=== PATIENT | male | born 1985 | race Caucasian/White ===

== ENCOUNTER 2021-08-22 20:41 | Emergency (ER) | payer OTHER ==
[~2021-08-22] VITALS: Ht 170.2 cm; Wt 81.6 kg
--- NOTE | 2021-08-22 20:50 | NUR ---
BIBS C/OL SIDED CP RADIATING TO RIGHT SHOULDER AND ARM, W/ SOB FOR 1 WEEK DESCRIBED PRESSURE . NO ALLEVIATING OR EXACERBATING FACTORS. PT AWAKE AND ALERT X4 BREATHING EVEN AND UNLABORED. CHANGED INTO GOWN AND PLACED ON MONITOR AND V/S WNL.
--- NOTE | 2021-08-22 21:07 | NUR ---
18G IV LINE ESTABLISHED AT LOCATED WITHIN [facility]. BLOOD DRAWN AND SENT TO LAB.
[2021-08-22 21:18] LABS: BASOPHILS % (AUTO) 0.4 % (0.0-2.0); EOSINOPHILS % (AUTO) 5.8 % (0.0-6.0); HEMATOCRIT 45 % (39-51); HEMOGLOBIN 15.7 g/dL (13.5-17.5); LYMPHOCYTES # (AUTO) 2.4 K/uL (0.8-4.8); LYMPHOCYTES % (AUTO) 31.4 % (20.0-44.0); MEAN CORPUSCULAR HGB CONC 35 g/dl (31.0-36.0); MEAN CORPUSCULAR VOLUME 93 fL (80-96); MONOCYTES # (AUTO) 0.6 K/uL (0.1-1.30); MONOCYTES % (AUTO) 7.5 % (2.0-12.0); NEUTROPHILS # (AUTO) 4.3 K/uL (1.8-8.9); NEUTROPHILS % (AUTO) 54.9 % (43.0-81.0); PLATELET COUNT (AUTO) 217 K/uL (150-450); RED BLOOD CELL COUNT(AUTO) 4.89 MIL/uL (4.5-6.0); WHITE BLOOD COUNT (AUTO) 7.7 K/uL (4.3-11.0)
[2021-08-22 21:32] LABS: CALCIUM, SERUM 9.3 mg/dL (8.5-10.1); CARBON DIOXIDE 30 mmol/L (21-32); CHLORIDE 103 mmol/L (98-107); CREATININE 0.9 mg/dL (0.6-1.3); GLUCOSE 92 mg/dL (74-106); POTASSIUM 3.8 mmol/L (3.5-5.1); SODIUM SERUM 140 mmol/L (136-145); UREA NITROGEN, BLOOD 21 mg/dL (7-18)
[2021-08-22 21:39] LABS: ALANINE AMINOTRANSFERASE 126 U/L (12-78); ALKALINE PHOSPHATASE 61 U/L (46-116); ASPARTATE AMINOTRANSFERASE 47 U/L (15-37); BILIRUBIN,DIRECT 0.1 mg/dL (0.0-0.2); BILIRUBIN,TOTAL 0.3 mg/dL (0.2-1.0); TOTAL PROTEIN, SERUM 7.9 g/dL (6.4-8.2)
[2021-08-22] MEDS ORDERED: KETOROLAC TROMETHAMINE INJ 30 MG/ML VIAL ONE ×2 (21:49→21:57)
[2021-08-22] MEDS ORDERED: KETOROLAC TROMETHAMINE INJ 30 MG/ML VIAL IV ONE (22:00)
[2021-08-22] MEDS ORDERED: NAPR-1009 PO (22:02)
[2021-08-22] MEDS ORDERED: HYDR-3976 PO (22:02)
--- NOTE | 2021-08-22 22:22 | NUR ---
Patient discharged to home in stable condition. Written and verbal after care instructions given. Patient verbalizes understanding of instruction.
[2021-08-22 22:52] VITALS: BP 123/68
== END 2021-08-22 22:28 | disposition home or self-care (01) ==
LOC: ER 20:41
DX: S46.911A Strain of unspecified muscle, fascia and tendon at shoulder and upper arm level, right arm, initial encounter (principal); S56.911A Strain of unspecified muscles, fascia and tendons at forearm level, right arm, initial encounter; R07.89 Other chest pain; X58.XXXA Exposure to other specified factors, initial encounter; Y93.89 Activity, other specified; Y92.89 Other specified places as the place of occurrence of the external cause; Y99.8 Other external cause status
CPT/HCPCS: 36415; 71045; 80048; 80076; 84484; 85025; 93005; 96374; 99285; J1885

== ENCOUNTER 2022-03-08 11:42 | Inpatient (IN) | payer OTHER ==
[~2022-03-08] VITALS: Ht 170.2 cm; Wt 81.6 kg
[~2022-03-08 11:42] MED LIST: HYDR-3976 PO; NAPR-1009 PO
[2022-03-08] MEDS ORDERED: HYDROCODONE/APAP 10/325MG TABLET PO ONE (12:00)
[2022-03-08] MEDS ORDERED: HYDROCODONE/APAP 10/325MG TABLET ONE (12:16)
[2022-03-08] MEDS ORDERED: MORPHINE SULFATE INJ 2 MG/ML DISP.SYRIN IV ONE (13:00)
--- NOTE | 2022-03-08 13:00 | NUR ---
20 g SL inserted in left forearm
[2022-03-08] MEDS ORDERED: MORPHINE SULFATE INJ 4 MG/ML DISP.SYRIN ONE (13:10)
[2022-03-08 13:11] LABS: BASOPHILS % (AUTO) 0.2 % (0.0-2.0); EOSINOPHILS % (AUTO) 1.9 % (0.0-6.0); HEMATOCRIT 45 % (39-51); HEMOGLOBIN 15.3 g/dL (13.5-17.5); LYMPHOCYTES # (AUTO) 1.2 K/uL (0.8-4.8); LYMPHOCYTES % (AUTO) 10.5 % (20.0-44.0); MEAN CORPUSCULAR HGB CONC 34 g/dl (31.0-36.0); MEAN CORPUSCULAR VOLUME 94 fL (80-96); MONOCYTES # (AUTO) 0.6 K/uL (0.1-1.30); MONOCYTES % (AUTO) 5.3 % (2.0-12.0); NEUTROPHILS # (AUTO) 9.3 K/uL (1.8-8.9); NEUTROPHILS % (AUTO) 82.1 % (43.0-81.0); PLATELET COUNT (AUTO) 240 K/uL (150-450); RED BLOOD CELL COUNT(AUTO) 4.85 MIL/uL (4.5-6.0); WHITE BLOOD COUNT (AUTO) 11.3 K/uL (4.3-11.0)
[2022-03-08] MEDS ORDERED: LEVO50TA PO (13:22)
[2022-03-08] MEDS ORDERED: PANT40TA49 PO (13:22)
[2022-03-08 13:23] LABS: CALCIUM, SERUM 8.8 mg/dL (8.5-10.1); CREATININE 0.9 mg/dL (0.6-1.3); POTASSIUM 3.5 mmol/L (3.5-5.1)
--- NOTE | 2022-03-08 13:59 | NUR ---
COVID and MRSA swabs obtained and placed in drop-off box
[2022-03-08] MEDS ORDERED: KETOROLAC TROMETHAMINE INJ 30 MG/ML VIAL IV ONE (15:00)
[2022-03-08] MEDS ORDERED: ONDANSETRON HCL/PF 4 MG/2 ML VIAL IVP PRN (17:00)
[2022-03-08] MEDS ORDERED: ACETAMINOPHEN 325 MG TABLET PO PRN (17:00)
[2022-03-08] MEDS: IV NS 0.9% 1,000 ML IV PRN ×2 (17:13→22:41)
[2022-03-08] MEDS: ENOXAPARIN SODIUM 40 MG/0.4 ML DISP.SYRIN SQ SCH (17:16)
[2022-03-08] MEDS: MORPHINE SULFATE INJ 2 MG/ML DISP.SYRIN IV PRN ×2 (18:03→22:14)
--- NOTE | 2022-03-08 20:50 | NUR ---
report given to maryanne on third floor
[2022-03-08 21:08] VITALS: BP 128/77
--- NOTE | 2022-03-08 21:08 | NUR ---
RN RECEIVING PATIENT FROM ER NOTE PATIENT [place] [facility] [place] WAS TRANSFERRED FROM RE[facility] TO BED BY STAFF. PATIENT STABLE. NO S/S OF DISTRESS, BREATHING WITHOUT DIFFICULTY ON ROOM AIR. LAC #18 INTACT AND PATENT. SAFETY MEASURES IN PLACE: BED LOCKED AND AT LOWEST POSITION, RAILS UP X2, CALL FERNÁNDEZ WITHIN REACH. PATIENT WAS ORIENTED TO THE UNIT. PATIENT WAS GIVEN CALL FERNÁNDEZ AND INSTRUCTED ON ITS USE. BELONGINGS ACCOUNTED FOR, LOGGED INTO SHEET, AND PLACED IN CHART. ALL ISSUES AND QUESTIONS ADDRESSED/ANSWERED. WILL CONTINUE TO MONITOR PATIENT.
--- NOTE | 2022-03-08 21:09 | NUR ---
wheeled patient via gurney accompanied by EMT in no distress. RN assigned at bedside to assume care.
[2022-03-09 01:24] VITALS: BP 128/77
[2022-03-09 05:56] LABS: BASOPHILS % (AUTO) 0.1 % (0.0-2.0); EOSINOPHILS % (AUTO) 2.8 % (0.0-6.0); HEMATOCRIT 40 % (39-51); HEMOGLOBIN 13.7 g/dL (13.5-17.5); LYMPHOCYTES # (AUTO) 1.7 K/uL (0.8-4.8); LYMPHOCYTES % (AUTO) 23.3 % (20.0-44.0); MEAN CORPUSCULAR HGB CONC 34 g/dl (31.0-36.0); MEAN CORPUSCULAR VOLUME 94 fL (80-96); MONOCYTES # (AUTO) 0.5 K/uL (0.1-1.30); MONOCYTES % (AUTO) 6.9 % (2.0-12.0); NEUTROPHILS # (AUTO) 4.9 K/uL (1.8-8.9); NEUTROPHILS % (AUTO) 66.9 % (43.0-81.0); PLATELET COUNT (AUTO) 194 K/uL (150-450); RED BLOOD CELL COUNT(AUTO) 4.31 MIL/uL (4.5-6.0); WHITE BLOOD COUNT (AUTO) 7.3 K/uL (4.3-11.0)
[2022-03-09 06:03] LABS: CALCIUM, SERUM 8.4 mg/dL (8.5-10.1); CREATININE 0.8 mg/dL (0.6-1.3); MAGNESIUM 2.1 mg/dL (1.8-2.4); PHOSPHORUS 3.6 mg/dL (2.5-4.9); POTASSIUM 3.6 mmol/L (3.5-5.1)
[2022-03-09] MEDS: MORPHINE SULFATE INJ 2 MG/ML DISP.SYRIN IV PRN (06:10)
--- NOTE | 2022-03-09 06:44 | NUR ---
RN CLOSING NOTE PATIENT ASLEEP IN BED. A/OX4. NO S/S OF DISTRESS, BREATHING WITHOUT DIFFICULTY ON ROOM AIR. LAC #18 INTACT AND PATENT W/ NS 75ML/HR. SAFETY MEASURES IN PLACE: BED LOCKED AND AT LOWEST POSITION, RAILS UP X2, CALL FERNÁNDEZ WITHIN REACH. WILL ENDORSE TO NEXT SHIFT FOR JOHANNA.
--- NOTE | 2022-03-09 07:45 | NUR ---
RN OPENING NOTE PATIENT AWAKE IN BED RESTING A/O X -4. NO S/S OF PAIN NOTED AT THIS TIME. ON ROOM AIR, NO DISTRESS OR SHORTNESS OF BREATH NOTED. IV ACCESS LAC #18G INTACT, PATENT AND FLUSHING WELL. FALL AND SAFETY MEASURES IN PLACE, BED ALARM ON, BED IN LOW AND LOCK POSITION, CALL LIGHT AND TABLE WITHIN EASY REACH, SIDE RAILS X2. WILL CONTINUE TO MONITOR.
[2022-03-09 08:29] VITALS: BP 127/81
[2022-03-09] MEDS: HYDROCODONE/APAP 5/325MG TABLET PO PRN ×2 (08:59→13:06)
[2022-03-09] MEDS: LEVOTHYROXINE SODIUM 50 MCG TABLET PO SCH (12:00)
[2022-03-09] MEDS: PANTOPRAZOLE 40 MG TABLET.DR PO SCH (13:06)
[2022-03-09] MEDS: IV NS 0.9% 1,000 ML IV PRN (13:16)
[2022-03-09 16:23] VITALS: BP 116/76
[2022-03-09] MEDS: HYDROMORPHONE 1 MG/1 ML DISP.SYRIN IV PRN ×2 (16:56→20:59)
[2022-03-09] MEDS: ENOXAPARIN SODIUM 40 MG/0.4 ML DISP.SYRIN SQ SCH (16:57)
--- NOTE | 2022-03-09 18:59 | NUR ---
RN CLOSING NOTE PATIENT AWAKE IN BED RESTING A/O X 4. 3/10 PAIN LEVEL, PAIN MEDICATION GIVEN DURING THE SHIFT. ON ROOM AIR, NO DISTRESS OR SHORTNESS OF BREATH NOTED. IV ACCESS LAC #18G INTACT, PATENT AND FLUSHING WELL. SCHEDULE MEDICATIONS ADMINISTERED. PATIENT WAS REPOSITIONED PER PROTOCOL. FALL AND SAFETY MEASURES IN PLACE, BED ALARM ON, BED IN LOW AND LOCK POSITION, CALL LIGHT AND TABLE WITHIN EASY REACH, SIDE RAILS X2. WILL ENDORSE TO INSURANCE PROFESSIONAL.
--- NOTE | 2022-03-09 19:55 | NUR ---
MS RN OPENING NOTE RECEIVED PATIENT AWAKE IN BED RESTING A/O X 4. ON ROOM AIR TOLERATING WELL, NO DISTRESS OR SHORTNESS OF BREATH NOTED. IV ACCESS LAC #18G INTACT, PATENT AND FLUSHING WELL RUNNING NS AT 75 ML/HR. FALL AND SAFETY MEASURES IN PLACE, BED ALARM ON, BED IN LOW AND LOCK POSITION, CALL LIGHT AND TABLE WITHIN EASY REACH, SIDE RAILS X2. WILL CONTINUE TO MONITOR THROUGHOUT THE SHIFT.
[2022-03-09 20:00] VITALS: BP 133/80
--- NOTE | 2022-03-09 21:00 | NUR ---
RN NOTE PT COMPLAINTS OF PAIN ON THE R LATERAL ARM RATED 9/10 ON PAINSCALE, DILAUDID GIVEN PRN MEDS FOR PAIN. PT TOLERATED WELL. WILL CONT TO MONITOR.
[2022-03-10] MEDS: IV NS 0.9% 1,000 ML IV PRN ×2 (03:36→16:55)
[2022-03-10] MEDS: HYDROMORPHONE 1 MG/1 ML DISP.SYRIN IV PRN ×4 (04:33→20:48)
--- NOTE | 2022-03-10 04:33 | NUR ---
RN NOTE PT COMPLAINTS OF PAIN ON THE R LATERAL ARM RATED 10/10 ON PAINSCALE, DILAUDID GIVEN PRN MEDS FOR PAIN. PT TOLERATED WELL. WILL CONT TO MONITOR.
--- NOTE | 2022-03-10 06:28 | NUR ---
MS RN CLOSING NOTE PATIENT SLEEPING IN BED BUT AROUSABLE TO TOUCH AND VOICE, A/O X 4. ON ROOM AIR TOLERATING WELL, NO DISTRESS OR SHORTNESS OF BREATH NOTED. STILL COMPLAINING OF PAIN ON THE R ARM, PAIN MEDICATION GIVEN MD ORDERED, IV ACCESS LAC #18G INTACT, PATENT AND FLUSHING WELL RUNNING NS AT 75 ML/HR. ALL DUE MEDS GIVEN, KEPT DRY AND CLEAN, FALL AND SAFETY MEASURES IN PLACE, BED ALARM ON, BED IN LOW AND LOCK POSITION, CALL LIGHT AND TABLE WITHIN EASY REACH, SIDE RAILS X2. WILL ENDORSE TO AM SHIFT NURSE FOR CONTINUITY OF CARE.
[2022-03-10] MEDS: LEVOTHYROXINE SODIUM 50 MCG TABLET PO SCH (07:30)
[2022-03-10 08:00] VITALS: BP 127/85
[2022-03-10] MEDS: PANTOPRAZOLE 40 MG TABLET.DR PO SCH (09:01)
[2022-03-10 16:00] VITALS: BP 121/76
[2022-03-10] MEDS: ENOXAPARIN SODIUM 40 MG/0.4 ML DISP.SYRIN SQ SCH (16:49)
[2022-03-10] MEDS: HYDROCODONE/APAP 5/325MG TABLET PO PRN (16:49)
--- NOTE | 2022-03-10 19:25 | NUR ---
MS RN OPENING NOTE RECEIVED PATIENT IN BED; AWAKE, ALERT AND ORIENTED X 4. ON ROOM AIR; TOLERATING WELL. BREATHING EVEN AND NONLABORED. NOT IN ANY FORM OF RESPIRATORY DISTRESS. ABLE TO MAKE NEEDS KNOWN. WITH IV ACCESS ON LEFT ANTECUBITAL 18G; INTACT AND PATENT RUNNING WITH NS 1L REGULATED @ 75 ML/HR; FLUSHING WELL. SAFETY PRECAUTIONS IMPLEMENTED: CALL LIGHT AND TABLE WITHIN REACH, SIDE RAILS UP X 2, BED IN LOWEST LOCKED POSITION. WILL CONTINUE PLAN OF CARE.
--- NOTE | 2022-03-10 19:28 | NUR ---
RN CLOSING NOTE PATIENT AWAKE IN BED RESTING A/O X 4. 2/10 PAIN LEVEL, PAIN MEDICATION GIVEN DURING THE SHIFT. ON ROOM AIR, NO DISTRESS OR SHORTNESS OF BREATH NOTED. IV ACCESS LAC #18G INTACT, PATENT AND FLUSHING WELL. SCHEDULE MEDICATIONS ADMINISTERED. PATIENT WAS REPOSITIONED PER PROTOCOL. FALL AND SAFETY MEASURES IN PLACE, BED ALARM ON, BED IN LOW AND LOCK POSITION, CALL LIGHT AND TABLE WITHIN EASY REACH, SIDE RAILS X2. WILL ENDORSE TO CONCRETE MASON.
[2022-03-10 20:00] VITALS: BP 147/94
--- NOTE | 2022-03-10 20:48 | NUR ---
RN NOTE PATIENT COMPLAINED OF RIGHT ARM PAIN RATED 8/10 PAINSCALE. PRN DILAUDID INJ 1 MG GIVEN IV ORDERED; PT TOLERATED WELL. WILL CONTINUE TO MONITOR.
[2022-03-11] MEDS: HYDROMORPHONE 1 MG/1 ML DISP.SYRIN IV PRN ×5 (02:12→21:13)
--- NOTE | 2022-03-11 02:12 | NUR ---
RN NOTE PATIENT COMPLAINED OF RIGHT ARM PAIN RATED 10/10 PAINSCALE. PRN DILAUDID INJ 1 MG GIVEN IV ORDERED; PATIENT TOLERATED WELL. WILL CONTINUE TO MONITOR
[2022-03-11 06:11] LABS: CALCIUM, SERUM 8.3 mg/dL (8.5-10.1); CREATININE 0.7 mg/dL (0.6-1.3); MAGNESIUM 2.2 mg/dL (1.8-2.4); PHOSPHORUS 4.1 mg/dL (2.5-4.9); POTASSIUM 3.9 mmol/L (3.5-5.1)
[2022-03-11 06:14] LABS: BASOPHILS % (AUTO) 0.2 % (0.0-2.0); EOSINOPHILS % (AUTO) 4.9 % (0.0-6.0); HEMATOCRIT 40 % (39-51); HEMOGLOBIN 13.7 g/dL (13.5-17.5); LYMPHOCYTES # (AUTO) 1.7 K/uL (0.8-4.8); LYMPHOCYTES % (AUTO) 19.7 % (20.0-44.0); MEAN CORPUSCULAR HGB CONC 35 g/dl (31.0-36.0); MEAN CORPUSCULAR VOLUME 93 fL (80-96); MONOCYTES # (AUTO) 0.7 K/uL (0.1-1.30); MONOCYTES % (AUTO) 8.2 % (2.0-12.0); NEUTROPHILS # (AUTO) 5.9 K/uL (1.8-8.9); PLATELET COUNT (AUTO) 228 K/uL (150-450); WHITE BLOOD COUNT (AUTO) 8.7 K/uL (4.3-11.0)
--- NOTE | 2022-03-11 06:46 | NUR ---
RN NOTE PT C/O RIGHT ARM PAIN RATED 10/10 PAINSCALE. PRN DILAUDID INJ 1 MG GIVEN IV ORDERED; PATIENT TOLERATED WELL. WILL CONTINUE TO MONITOR
--- NOTE | 2022-03-11 06:55 | NUR ---
MS RN CLOSING NOTE PT IN BED; AWAKE, A/O X 4. STABLE ON ROOM AIR. BREATHING EQUAL AND UNLABORED. IN NO APPARENT DISTRESS. WITH IV ACCESS ON LEFT ANTECUBITAL 18G; INTACT AND PATENT RUNNING WITH NS 1L REGULATED @ 75 ML/HR; FLUSHING WELL. SAFETY PRECAUTIONS MAINTAINED: CALL LIGHT AND TABLE WITHIN REACH, SIDE RAILS UP X 2, BED IN LOWEST LOCKED POSITION. ENDORSED TO MORNING SHIFT FOR JOHANNA.
[2022-03-11 08:00] VITALS: BP 121/74
[2022-03-11] MEDS: PANTOPRAZOLE 40 MG TABLET.DR PO SCH (08:26)
[2022-03-11] MEDS: LEVOTHYROXINE SODIUM 50 MCG TABLET PO SCH ×2 (08:26→09:25)
[2022-03-11] MEDS: HYDROCODONE/APAP 5/325MG TABLET PO PRN ×2 (09:36→20:06)
[2022-03-11] MEDS: IV NS 0.9% 1,000 ML IV PRN (11:32)
[2022-03-11 16:00] VITALS: BP 117/74
[2022-03-11] MEDS: ENOXAPARIN SODIUM 40 MG/0.4 ML DISP.SYRIN SQ SCH (17:11)
--- NOTE | 2022-03-11 19:31 | NUR ---
MS RN CLOSING NOTE PT IN BED; AWAKE, A/O X 4. STABLE ON ROOM AIR. BREATHING EQUAL AND UNLABORED. IN NO APPARENT DISTRESS. WITH IV ACCESS ON LEFT ANTECUBITAL 18G; INTACT AND PATENT RUNNING WITH NS 1L REGULATED @ 75 ML/HR; FLUSHING WELL. PATIENT SCHEDULED FOR ORIF TOMORROW, INSTRUCTED PATIENT TO BE ON NPO EXCEPT MEDS DIET. PATIENT VERBALIZED UNDERSTANDING. PER DR. FIGUEROA LOVENOX CAN BE GIVEN TODAY BUT CAN HOLD TOMORROW. SAFETY PRECAUTIONS MAINTAINED: CALL LIGHT AND TABLE WITHIN REACH, SIDE RAILS UP X 2, BED IN LOWEST LOCKED POSITION. ENDORSED TO FOUNDATION STAGE TEACHER FOR JOHANNA.
--- NOTE | 2022-03-11 19:32 | NUR ---
MS RN OPENING NOTES RECEIVED PATIENT LAYING IN BED AWAKE. A/O X4. BREATHING EVEN AND NON-LABORED ON ROOM AIR. NOT IN APPARENT DISTRESS. C/O MODERATE PAIN ON HIS RIGHT ARM. HAS LEFT ANTECUBITAL IV ACCESS #18G WITH NS RUNNING AT 75 ML/HR. NO S/S OF INFILTRATION NOTED. REMINDED PATIENT HE WILL BE NPO EXCEPT MEDS BY MIDNIGHT, VERBALIZED UNDERSTANDING. SAFETY PRECAUTIONS IN PLACE: BED LOW AND LOCKED, SIDE RAILS UP X2, CALL LIGHT WITHIN REACH. WILL CONTINUE POC.
[2022-03-11 20:00] VITALS: BP 133/80
--- NOTE | 2022-03-11 20:07 | NUR ---
MS RN NOTES PATIENT C/O RIGHT ARM PAIN 10/10. GIVING PRN NORCO SINCE DILAUDID IS NOT YET DUE. WILL CONTINUE TO MANAGE PAIN.
--- NOTE | 2022-03-11 21:15 | NUR ---
MS RN NOTES PATIENT STILL C/O RIGHT ARM PAIN 11/19. ADMINISTERED PRN DILAUDID, TOLERATED WELL.
[2022-03-12] MEDS: IV NS 0.9% 1,000 ML IV PRN ×2 (00:16→16:54)
[2022-03-12] MEDS: HYDROCODONE/APAP 5/325MG TABLET PO PRN ×3 (00:22→17:08)
--- NOTE | 2022-03-12 00:33 | NUR ---
MS RN NOTES PATIENT VERBALIZED HE IS FEELING MORE PAIN NOW IN HIS RIGHT ARM. GAVE PRN NORCO, WILL CONTINUE PAIN MGT.
[2022-03-12] MEDS: HYDROMORPHONE 1 MG/1 ML DISP.SYRIN IV PRN ×3 (04:38→21:33)
[2022-03-12 06:42] LABS: CALCIUM, SERUM 8.4 mg/dL (8.5-10.1); CREATININE 0.7 mg/dL (0.6-1.3); MAGNESIUM 2.2 mg/dL (1.8-2.4); PHOSPHORUS 4.2 mg/dL (2.5-4.9); POTASSIUM 3.8 mmol/L (3.5-5.1)
[2022-03-12 06:45] LABS: BASOPHILS % (AUTO) 0.2 % (0.0-2.0); HEMATOCRIT 42 % (39-51); HEMOGLOBIN 14.4 g/dL (13.5-17.5); LYMPHOCYTES # (AUTO) 1.5 K/uL (0.8-4.8); LYMPHOCYTES % (AUTO) 23.2 % (20.0-44.0); MEAN CORPUSCULAR HGB CONC 34 g/dl (31.0-36.0); MEAN CORPUSCULAR VOLUME 93 fL (80-96); MONOCYTES # (AUTO) 0.5 K/uL (0.1-1.30); NEUTROPHILS # (AUTO) 4.1 K/uL (1.8-8.9); NEUTROPHILS % (AUTO) 62.6 % (43.0-81.0); PLATELET COUNT (AUTO) 254 K/uL (150-450); RED BLOOD CELL COUNT(AUTO) 4.49 MIL/uL (4.5-6.0); WHITE BLOOD COUNT (AUTO) 6.6 K/uL (4.3-11.0)
--- NOTE | 2022-03-12 07:00 | NUR ---
MS RN CLOSING NOTES PATIENT LAYING IN BED ASLEEP, EASY TO AROUSE. STABLE THROUGHOUT THE SHIFT. VERBALIZED HIS RIGHT ARM PAIN HAS IMPROVED. AFEBRILE. LEFT ANTECUBITAL IV ACCESS #18G INTACT, PATENT AND FLUSHING. PRE-OP CHECKLIST DONE. STILL ON NPO. SAFETY PRECAUTIONS MAINTAINED. WILL ENDORSE TO NEXT SHIFT FOR JOHANNA.
[2022-03-12] MEDS ORDERED: BUPIVACAINE 0.25% 75 MG/30 ML VIAL ONE (07:18)
[2022-03-12] MEDS ORDERED: ANESTHESIA TRAY IN PYXIS 1 EA TRAY MC ONE (07:18)
[2022-03-12] MEDS: LEVOTHYROXINE SODIUM 50 MCG TABLET PO SCH (07:30)
--- NOTE | 2022-03-12 07:53 | NUR ---
MS RN OPENING NOTES RECEIVED PATIENT LAYING IN BED AWAKE. A/O X4. BREATHING EVEN AND NON-LABORED ON ROOM AIR. NOT IN APPARENT DISTRESS. HAS LEFT ANTECUBITAL IV ACCESS #18G WITH NS RUNNING AT 75 ML/HR. NO S/S OF INFILTRATION NOTED. REMINDED PATIENT HE STILL NPO EXCEPT MEDS BY, VERBALIZED UNDERSTANDING. SAFETY PRECAUTIONS IN PLACE: BED LOW AND LOCKED, SIDE RAILS UP X2, CALL LIGHT WITHIN REACH. WILL CONTINUE POC.
[2022-03-12] MEDS: PANTOPRAZOLE 40 MG TABLET.DR PO SCH (08:12)
[2022-03-12 08:22] VITALS: BP_SYST 109; BP_SYST 150; BP_DIAS 58; BP_DIAS 66
[2022-03-12] MEDS ORDERED: POLYMYXIN B SULFATE 500,000 UNITS ONE (09:59)
[2022-03-12] MEDS ORDERED: VANCOMYCIN 1 GM VIAL ONE (09:59)
--- NOTE | 2022-03-12 10:02 | NUR ---
Patient went for surgery around 0930H.vitals taken, stable and recorded.
[2022-03-12] MEDS ORDERED: ROCURONIUM BROMIDE 50 MG/5 ML ONE ×3 (10:04→11:39)
[2022-03-12] MEDS ORDERED: HYDROMORPHONE INJ 2 MG/ML DISP.SYRIN ONE (10:04)
[2022-03-12] MEDS ORDERED: MIDAZOLAM HCL 2 MG/2ML VIAL ONE (10:04)
[2022-03-12] MEDS ORDERED: FENTANYL PF 100MCG/2ML AMPUL ONE (13:53)
--- NOTE | 2022-03-12 14:55 | NUR ---
Patient came back from the OR, A/O x3. On RA, tolerating well. lethargic but able to make needs known. Vitals taken, stable and recorded . BP-125/71, spo2 99%, RR-18, MA-100, T-98. No c/o complain at this time. Will monitor.
[2022-03-12 16:45] VITALS: BP 126/84
[2022-03-12] MEDS: ANCEF 1 GM/50 ML D5W IV SCH ×2 (17:00)
[2022-03-12] MEDS: ENOXAPARIN SODIUM 40 MG/0.4 ML DISP.SYRIN SQ SCH (17:09)
[2022-03-12] MEDS ORDERED: BISACODYL SUPP (10 MG) 10 MG/SUPP.RECT SUPP.RECT RC PRN (18:00)
[2022-03-12] MEDS ORDERED: SENNOSIDES 8.6 MG TABLET PO PRN (18:00)
[2022-03-12] MEDS ORDERED: DOCUSATE SODIUM 100 MG CAPSULE PO PRN (18:00)
--- NOTE | 2022-03-12 18:15 | NUR ---
MS RN CLOSING NOTES PATIENT AWAKE IN BED, A/OX3 WITH THE BESIDE HIM. ABLE TO MAKE NEEDS KNOWN. NO SYMPTOMS OF RESPIRATORY OR CARDIAC DISTRESS. C/O PAIN AT THE OPERATIVE SITE, MANAGED WITH PAIN MEDS ORDERED. STARTED ON ICE CUBES FOR DIET, NO DIFFICULTY SWALLOWING NOTED. NO NAUSEA OR VOMITING. ON REGULAR DIET. VITALS TAKEN, STABLE AND RECORDED. LEFT IV ACCESS #18G INTACT, PATENT AND FLUSHING. SAFETY PRECAUTIONS MAINTAINED. ALL DUE MEDS GIVEN. NO COMPLICATIONS NOTED OF THIS TIME. WILL ENDORSE TO NEXT SHIFT FOR JOHANNA.
[2022-03-12] MEDS: MORPHINE SULFATE INJ 4 MG/ML DISP.SYRIN IV PRN ×2 (18:53→23:51)
--- NOTE | 2022-03-12 19:30 | NUR ---
MS RN OPENING NOTES RECEIVED PATIENT LAYING IN BED AWAKE, ON BEDSIDE. A/O X4. BREATHING EVEN AND NON-LABORED ON ROOM AIR. NOT IN APPARENT DISTRESS. VERBALIZED HE JUST RECEIVED HIS PAIN MEDICINE AND HE IS UNABLE TO FEEL ANYTHING ON HIS RIGHT HAND. HAS LEFT WRIST IV ACCESS #18G WITH NS RUNNING AT 75 ML/HR. NO S/S OF INFILTRATION NOTED. RIGHT ARM DRESSING DRY AND INTACT. SAFETY PRECAUTIONS IN PLACE: BED LOW AND LOCKED, SIDE RAILS UP X2, CALL LIGHT WITHIN REACH. WILL CONTINUE POC.
[2022-03-12 20:00] VITALS: BP 123/82
--- NOTE | 2022-03-12 20:15 | NUR ---
MS CUELLAR NOTES CAYLA ALBARRAN AWARE OF RIGHT HAND NUMBNESS AND ADVISED TO MONITOR IT FOR NOW. APPLIED COLD COMPRESS TO HELP WITH THE SWELLING. Addendum: 03/13/22 at 0555 by September ZULEYMA CUELLAR HOSPITALIST MANUELA AWARE WITH NNO.
--- NOTE | 2022-03-12 21:30 | NUR ---
MS RN NOTES PATIENT VERBALIZED HIS RIGHT ARM PAIN IS 10/10. WILL ADMINISTER PRN DILAUDID 1MG. WILL CONTINUE TO MONITOR PATIENT.
--- NOTE | 2022-03-12 21:31 | NUR ---
MS RN NOTES PATIENT REQUESTING FOR STOOL SOFTENER SINCE HE HAS NOT HAD ANY BM SINCE HE WAS ADMITTED.
--- NOTE | 2022-03-12 23:52 | NUR ---
MS RN NOTES PATIENT C/O RIGHT ARM PAIN 7/10, PRN MORPHINE 3MG GIVEN.
[2022-03-13] MEDS: ANCEF 1 GM/50 ML D5W IV SCH ×2 (01:41)
[2022-03-13] MEDS: HYDROMORPHONE 1 MG/1 ML DISP.SYRIN IV PRN ×5 (02:25→21:46)
--- NOTE | 2022-03-13 02:25 | NUR ---
MS RN NOTES PATIENT WAS ABLE TO USE THE BATHROOM AND HAD BM X1. REQUESTED PAIN MED WHEN HE GOT BACK TO BED. ADMINISTERED PRN DILAUDID, OFFLOADED.
[2022-03-13] MEDS: MORPHINE SULFATE INJ 4 MG/ML DISP.SYRIN IV PRN ×3 (05:53→12:21)
[2022-03-13] MEDS: IV NS 0.9% 1,000 ML IV PRN ×2 (05:54→20:27)
--- NOTE | 2022-03-13 06:00 | NUR ---
MS RN NOTES PATIENT C/O RIGHT ARM PAIN 09/19. ADMINISTERED PRN MORPHINE 3MG.
[2022-03-13 06:05] LABS: BASOPHILS % (AUTO) 0.1 % (0.0-2.0); EOSINOPHILS % (AUTO) 0.2 % (0.0-6.0); HEMATOCRIT 36 % (39-51); HEMOGLOBIN 12.4 g/dL (13.5-17.5); LYMPHOCYTES # (AUTO) 1.1 K/uL (0.8-4.8); LYMPHOCYTES % (AUTO) 9.4 % (20.0-44.0); MEAN CORPUSCULAR HGB CONC 35 g/dl (31.0-36.0); MEAN CORPUSCULAR VOLUME 93 fL (80-96); MONOCYTES # (AUTO) 0.8 K/uL (0.1-1.30); MONOCYTES % (AUTO) 6.5 % (2.0-12.0); NEUTROPHILS # (AUTO) 9.9 K/uL (1.8-8.9); NEUTROPHILS % (AUTO) 83.8 % (43.0-81.0); PLATELET COUNT (AUTO) 285 K/uL (150-450); RED BLOOD CELL COUNT(AUTO) 3.87 MIL/uL (4.5-6.0); WHITE BLOOD COUNT (AUTO) 11.7 K/uL (4.3-11.0)
[2022-03-13 06:36] LABS: CALCIUM, SERUM 8.1 mg/dL (8.5-10.1); CREATININE 0.8 mg/dL (0.6-1.3); MAGNESIUM 2.2 mg/dL (1.8-2.4); PHOSPHORUS 3.6 mg/dL (2.5-4.9)
--- NOTE | 2022-03-13 06:52 | NUR ---
MS RN CLOSING NOTES PATIENT LAYING IN BED SLEEPING INTERMITTENTLY. STABLE THROUGHOUT THE SHIFT. AFEBRILE. LEFT WRIST IV ACCESS #18G INTACT, PATENT AND FLUSHING. RIGHT ARM SURGICAL DRESSING C/D/I. ALL DUE MEDS GIVEN AND NEEDS ATTENDED. SAFETY PRECAUTIONS MAINTAINED. WILL ENDORSE TO NEXT SHIFT FOR JOHANNA.
[2022-03-13] MEDS: LEVOTHYROXINE SODIUM 50 MCG TABLET PO SCH (07:30)
[2022-03-13 08:00] VITALS: BP 121/77
[2022-03-13] MEDS: PANTOPRAZOLE 40 MG TABLET.DR PO SCH (08:23)
[2022-03-13] MEDS ORDERED: DOCU100C36 PO (16:25)
[2022-03-13] MEDS: HYDROCODONE/APAP 5/325MG TABLET PO PRN (16:39)
[2022-03-13] MEDS: ENSURE ENLIVE CHOC 237 ML CAN PO SCH (17:21)
[2022-03-13] MEDS: ENOXAPARIN SODIUM 40 MG/0.4 ML DISP.SYRIN SQ SCH (17:22)
--- NOTE | 2022-03-13 19:54 | NUR ---
RN OPENING NOTE PATIENT AWAKE IN BED. A/OX4. NO S/S OF DISTRESS, BREATHING WITHOUT DIFICULTY ON ROOM AIR. R-WRIST #18 INTACT AND PATENT W/ NS 75ML/HR. SAFETY MEASURES IN PLACE: BED LOCKED AND AT LOWEST POSITION, RAILS UP X2, CALL FERNÁNDEZ WITHIN REACH. WILL CONTINUE TO MONITOR PATIENT.
[2022-03-13 20:36] VITALS: BP 132/77
[2022-03-14] MEDS: HYDROCODONE/APAP 5/325MG TABLET PO PRN (00:52)
[2022-03-14] MEDS: HYDROMORPHONE 1 MG/1 ML DISP.SYRIN IV PRN ×3 (02:41→13:05)
--- NOTE | 2022-03-14 06:52 | NUR ---
RN CLOSING NOTE PATIENT ASLEEP IN BED. A/OX4. NO S/S OF DISTRESS, BREATHING WITHOUT DIFFICULTY ON ROOM AIR. LAC #20 NS 75ML/HR. SAFETY MEASURES IN PLACE: BED LOCKED AND AT LOWEST POSITION, RAILS UP X2, CALL FERNÁNDEZ WITHIN REACH. WILL ENDORSE TO NEXT SHIFT FOR JOHANNA.
[2022-03-14] MEDS: LEVOTHYROXINE SODIUM 50 MCG TABLET PO SCH ×2 (07:30→08:08)
--- NOTE | 2022-03-14 07:30 | NUR ---
MS RN OPENING NOTES RECEIVED PATIENT LAYING IN BED AWAKE, A/O X4 AT 0730. BREATHING EVEN AND NON-LABORED ON ROOM AIR. NOT IN APPARENT DISTRESS. HAS LEFT WRIST IV ACCESS #20G WITH NS RUNNING AT 75 ML/HR. NO S/S OF INFILTRATION NOTED. RIGHT ARM DRESSING DRY AND INTACT. SAFETY PRECAUTIONS IN PLACE: BED LOW AND LOCKED, SIDE RAILS UP X2, CALL LIGHT WITHIN REACH. WILL CONTINUE POC.
[2022-03-14 08:00] VITALS: BP 135/85
--- NOTE | 2022-03-14 08:00 | NUR ---
MS RN NOTES PATIENT REFUSED LEVOTHYROXINE SODIUM, PREFERS OWN MED
[2022-03-14] MEDS: PANTOPRAZOLE 40 MG TABLET.DR PO SCH (08:08)
--- NOTE | 2022-03-14 08:40 | NUR ---
MS RN NOTE PATIENT VERBALIZED PAIN AT THE RATE OF 9. GAVE PRN DILAUDID, 1MG. WILL REASSESS
[2022-03-14] MEDS: ENSURE ENLIVE CHOC 237 ML CAN PO SCH (08:48)
[2022-03-14] MEDS: IV NS 0.9% 1,000 ML IV PRN (09:44)
--- NOTE | 2022-03-14 14:35 | NUR ---
RN MS NOTES PT IN BED, AWAKE, ALERT AND ORIENTED, PAIN MEDICATION GIVEN ORDERED, SEEN AND EXAMINED BY DR. PALACIOS, DISCHARGE ORDER GIVEN, DISCHARGE AND MEDICATION INSTRUCTIONS PROVIDED TO PT AND AT BEDSIDE, VERBALIZED UNDERSTANDING, SLING TO RIGHT ARM IN PLACE, BELONGINGS ACCOUNTED FOR, NEW PRESCRIPTIONS GIVEN TO PT, ACCOMPANIED PT TO HOSPITAL LOBBY, PT ABLE TO WALK WITH STEADY GAIT, LEFT WITH IN STABLE CONDITION.
== END 2022-03-14 14:30 | disposition home health service (06) | DRG 315 ==
LOC: ER 11:45 → MED 20:37
PROVIDERS: ADMIT Nurse Practitioner Acute Care; ATTEND Internal Medicine
PROC: 0PSF04Z Reposition Right Humeral Shaft with Internal Fixation Device, Open Approach (ICD-10-PCS; principal; 2022-03-12)
DX: S42.401A Unspecified fracture of lower end of right humerus, initial encounter for closed fracture (principal); D72.829 Elevated white blood cell count, unspecified; E03.9 Hypothyroidism, unspecified; K21.9 Gastro-esophageal reflux disease without esophagitis; W01.0XXA Fall on same level from slipping, tripping and stumbling without subsequent striking against object, initial encounter; Y92.481 Parking lot as the place of occurrence of the external cause; Z79.899 Other long term (current) drug therapy; Z20.822 Contact with and (suspected) exposure to COVID-19; F17.210 Nicotine dependence, cigarettes, uncomplicated; Y93.01 Activity, walking, marching and hiking; G56.20 Lesion of ulnar nerve, unspecified upper limb; Z68.28 Body mass index [BMI] 28.0-28.9, adult; E66.3 Overweight; G56.21 Lesion of ulnar nerve, right upper limb
CPT/HCPCS: 36415; 73060-TC; 73070-TC; 73080-TC; 73090-TC; 73130-TC; 73200-TC; 80048-TC; 82962-TC; 83735-TC; 84100-TC; 85025-TC; 85610-TC; 85730-TC; 87081-TC; 93307-TC; 97530-TC; A4565; A4649; A6253; A6402; C1713; C9803; G0378; J0690; J1100; J1170; J1650; J1885; J2250; J2270; J2405; J2704; J3010; J3370; J3490; J7030; J7060